=== PATIENT | female | born 1965 | race African-American/Black ===

== ENCOUNTER 2018-02-24 18:09 | Emergency (ER) | payer MEDICAID, OTHER ==
[~2018-02-24] VITALS: Ht 170.2 cm; Wt 82.0 kg
[2018-02-24] MEDS ORDERED: NALOXONE HCL 0.4 MG/ML 1ML VIAL IV ONE (18:30)
[2018-02-24 19:19] LABS: HEMATOCRIT. 40.5 % (36.0-48.0); HEMOGLOBIN. 13.8 g/dL (12.0-16.0); LYMPHOCYTES % 29.4 % (20.0-50.0); MEAN CORPUSCULAR HEMOGLOBIN 30.3 pg (28.0-32.0); MEAN CORPUSCULAR VOLUME 88.9 fL (81.0-99.0); MEAN PLATELET VOLUME 8.3 fl (7.4-10.4); MONOCYTES % 5.7 % (2.0-8.0); NEUTROPHILS % 60.9 % (40.0-76.0); PLATELET 315 x1000/uL (130-400); RED BLOOD CELL COUNT 4.55 mill/uL (4.2-5.4); RED CELL DISTRIBUTION WIDTH 15.4 % (11.6-14.6)
[2018-02-24 19:23] LABS: CHLORIDE 107 mEq/L (98-107)
[2018-02-24 19:28] LABS: ETHANOL BLOOD < 10 mg/dL
[2018-02-24 19:53] LABS: CLARITY URINE CLEAR (CLEAR); COLOR URINE YELLOW (YELLOW); KETONES URINE NEGATIVE (NEGATIVE); LEUKOCYTE ESTERASE URINE NEGATIVE (NEGATIVE); NITRITE URINE NEGATIVE (NEGATIVE); OCCULT BLOOD URINE NEGATIVE (NEGATIVE); PROTEIN URINE NEGATIVE (NEGATIVE); SPECIFIC GRAVITY URINE 1.028 (1.005-1.030); UROBILINOGEN URINE 0.2 E.U./dL (0.2-1.0)
[2018-02-24 20:04] LABS: *AMPHETAMINES SCREEN URINE NEGATIVE (NEGATIVE); *BARBITURATES SCREEN URINE NEGATIVE (NEGATIVE); *BENZODIAZEPINES SCREEN URINE NEGATIVE (NEGATIVE); *COCAINE SCREEN URINE PRESUMTIVE POSITIVE (NEGATIVE); METHADONE URINE SCREEN NEGATIVE (NEGATIVE); OPIATES URINE SCREEN PRESUMTIVE POSITIVE (NEGATIVE)
[2018-02-24 20:05] LABS: CANNABINOID URINE SCREEN PRESUMTIVE POSITIVE (NEGATIVE); PHENCYCLIDINE URINE SCREEN NEGATIVE (NEGATIVE)
[2018-02-24] MEDS ORDERED: NALOXONE HCL 0.4 MG/ML 1ML VIAL IV NR (20:30)
[2018-02-25 07:08] VITALS: BP 130/84
== END 2018-02-25 07:30 | disposition home or self-care (01) ==
LOC: ER 18:22
DX: F19.10 Other psychoactive substance abuse, uncomplicated (principal); R41.82 Altered mental status, unspecified; I10 Essential (primary) hypertension; J32.2 Chronic ethmoidal sinusitis
CPT/HCPCS: 36415; 70450; 71045; 80053; 80305; 80307; 80329; 81003; 81025; 82962; 85025; 96374; 96376; 99285; G0482; J2310; Z7610

== ENCOUNTER 2018-08-03 01:25 | Emergency (ER) | payer OTHER ==
[~2018-08-03] VITALS: Ht 162.6 cm; Wt 83.0 kg
[2018-08-03] MEDS ORDERED: IBUPROFEN 800MG TABLET PO ONE (06:30)
[2018-08-03] MEDS ORDERED: KETOROLAC 60MG/2ML VIAL IM ONE (06:45)
[2018-08-03] MEDS ORDERED: CYCLOBENZAPRINE 10MG TABLET PO ONE (06:45)
[2018-08-03 09:18] VITALS: BP 111/81
== END 2018-08-03 09:23 | disposition home or self-care (01) ==
LOC: ER 01:25
DX: M25.561 Pain in right knee (principal); M17.11 Unilateral primary osteoarthritis, right knee; I10 Essential (primary) hypertension; X58.XXXA Exposure to other specified factors, initial encounter; Y93.89 Activity, other specified; Y92.89 Other specified places as the place of occurrence of the external cause
CPT/HCPCS: 73562; 96372; 99283; J1885; L1830; 29505

== ENCOUNTER 2021-05-17 07:25 | Emergency (ER) | payer MEDICAID, OTHER ==
[~2021-05-17] VITALS: Ht 165.1 cm; Wt 70.0 kg
[2021-05-17 09:05] LABS: BASOPHILS % 0.3 % (0.0-2.0); EOSINOPHILS % 0.5 % (0.0-5.0); HEMATOCRIT. 48.8 % (36.0-48.0); HEMOGLOBIN. 16.1 g/dL (12.0-16.0); LYMPHOCYTES % 16.3 % (20.0-50.0); MEAN CORPUSCULAR HEMOGLOBIN 30.7 pg (28.0-32.0); MEAN PLATELET VOLUME 8.9 fl (7.4-10.4); MONOCYTES % 2.8 % (2.0-8.0); NEUTROPHILS % 80.1 % (40.0-76.0); PLATELET 279 x1000/uL (130-400); RED BLOOD CELL COUNT 5.25 mill/uL (4.2-5.4); RED CELL DISTRIBUTION WIDTH 14.2 % (11.6-14.6)
[2021-05-17 09:12] LABS: CHLORIDE 106 mEq/L (98-107)
[2021-05-17 09:17] LABS: ETHANOL BLOOD < 10 mg/dL
[2021-05-17] MEDS ORDERED: ONDANSETRON 4MG ODT PO ONE (10:30)
[2021-05-17 10:47] LABS: CLARITY URINE CLOUDY (CLEAR); COLOR URINE YELLOW (YELLOW); KETONES URINE NEGATIVE (NEGATIVE); LEUKOCYTE ESTERASE URINE 3+ (NEGATIVE); NITRITE URINE NEGATIVE (NEGATIVE); OCCULT BLOOD URINE 1+ (NEGATIVE); PH URINE 5.5 (4.5-8.0); PROTEIN URINE 2+ (NEGATIVE); SPECIFIC GRAVITY URINE 1.012 (1.005-1.030); UROBILINOGEN URINE 0.2 E.U./dL (0.2-1.0)
[2021-05-17 11:11] LABS: CANNABINOID URINE SCREEN NEGATIVE (NEGATIVE); OPIATES URINE SCREEN NEGATIVE (NEGATIVE); PHENCYCLIDINE URINE SCREEN NEGATIVE (NEGATIVE)
[2021-05-17 11:12] LABS: *AMPHETAMINES SCREEN URINE NEGATIVE (NEGATIVE); *BARBITURATES SCREEN URINE NEGATIVE (NEGATIVE); *BENZODIAZEPINES SCREEN URINE NEGATIVE (NEGATIVE); *COCAINE SCREEN URINE PRESUMTIVE POSITIVE (NEGATIVE); METHADONE URINE SCREEN NEGATIVE (NEGATIVE)
[2021-05-17] MEDS ORDERED: CEFTRIAXONE 1 G PREMIX 50 ML IV ONE (11:30)
[2021-05-17] MEDS ORDERED: CEPH500T MT (11:39)
[2021-05-17] MEDS ORDERED: NALO4SPR BOTHNSTRLS (11:44)
[2021-05-17 12:46] VITALS: BP 126/75
== END 2021-05-17 12:49 | disposition home or self-care (01) ==
LOC: ER 07:30
DX: T50.7X1A Poisoning by analeptics and opioid receptor antagonists, accidental (unintentional), initial encounter (principal); Y92.89 Other specified places as the place of occurrence of the external cause; N39.0 Urinary tract infection, site not specified; I10 Essential (primary) hypertension; F17.290 Nicotine dependence, other tobacco product, uncomplicated; F14.10 Cocaine abuse, uncomplicated; F12.10 Cannabis abuse, uncomplicated
CPT/HCPCS: 36415; 70450; 80053; 80305; 80320; 81003; 85025; 87077; 87086; 93005; 96365; 99285; J0696; Q0162; G0480

== ENCOUNTER 2021-10-17 19:49 | Emergency (ER) | payer MEDICAID ==
[~2021-10-17] VITALS: Ht 162.6 cm; Wt 61.0 kg
[~2021-10-17 19:49] MED LIST: CEPH500T MT; NALO4SPR BOTHNSTRLS
[2021-10-17] MEDS ORDERED: ACETAMINOPHEN WITH CODEINE 300/30MG TABLET PO ONE (20:30)
[2021-10-17] MEDS ORDERED: HYDRALAZINE 20MG/ML VIAL IV ONE (23:45)
[2021-10-18] MEDS ORDERED: OXYCODONE HCL/ACETAMINOPHEN 5/325MG TABLET PO ONE (01:30)
[2021-10-18 02:21] LABS: BASOPHILS % 1.2 % (0.0-2.0); EOSINOPHILS % 5.7 % (0.0-5.0); HEMATOCRIT. 42.4 % (36.0-48.0); HEMOGLOBIN. 14.5 g/dL (12.0-16.0); LYMPHOCYTES % 42.9 % (20.0-50.0); MEAN CORPUSCULAR HEMOGLOBIN 30.7 pg (28.0-32.0); MEAN CORPUSCULAR VOLUME 89.7 fL (81.0-99.0); MEAN PLATELET VOLUME 8.5 fl (7.4-10.4); MONOCYTES % 5.4 % (2.0-8.0); NEUTROPHILS % 44.8 % (40.0-76.0); PLATELET 297 x1000/uL (130-400); RED BLOOD CELL COUNT 4.73 mill/uL (4.2-5.4); RED CELL DISTRIBUTION WIDTH 13.6 % (11.6-14.6)
[2021-10-18 02:28] LABS: CHLORIDE 109 mEq/L (98-107)
[2021-10-18] MEDS ORDERED: MORPHINE SULFATE 2 MG/ML CPJ (NOT FOR IM USE) IV ONE (08:30)
[2021-10-18] MEDS ORDERED: MORPHINE SULFATE 4 MG/ML CPJ (NOT FOR IM USE) IV ONE (17:00)
[2021-10-18] MEDS ORDERED: AMOXICILLIN/POTASSIUM CLAVULANATE 875/125MG TAB PO ONE (20:15)
[2021-10-19] MEDS ORDERED: ACETAMINOPHEN 325MG TABLET PO ONE (05:45)
[2021-10-19] MEDS ORDERED: FLUORESCEIN SODIUM 1MG/STRIP LEFTEYE ONE (05:45)
[2021-10-19] MEDS ORDERED: TETRACAINE 0.5% OPHTH DROPS 4ML LEFTEYE ONE (05:45)
[2021-10-19] MEDS ORDERED: TOPUD PO (05:52)
[2021-10-19 06:00] VITALS: BP 141/81
[2021-10-19] MEDS ORDERED: OXYC-100 MT (06:18)
[2021-10-19] MEDS ORDERED: AMOX-424 PO (06:19)
== END 2021-10-19 06:45 | disposition home or self-care (01) ==
LOC: ER 19:55
DX: S02.32XA Fracture of orbital floor, left side, initial encounter for closed fracture (principal); S02.40DA Maxillary fracture, left side, initial encounter for closed fracture; S02.2XXA Fracture of nasal bones, initial encounter for closed fracture; M79.641 Pain in right hand; K92.0 Hematemesis; Z20.822 Contact with and (suspected) exposure to COVID-19; I10 Essential (primary) hypertension; F14.10 Cocaine abuse, uncomplicated; Y04.2XXA Assault by strike against or bumped into by another person, initial encounter; Y93.89 Activity, other specified; Y92.89 Other specified places as the place of occurrence of the external cause; F12.10 Cannabis abuse, uncomplicated; F11.10 Opioid abuse, uncomplicated
CPT/HCPCS: 70450; 70486; 71045; 73120; 80053; 83880; 84484; 85025; 87426; 96374; 96375; 96376; 99285; J0360; J2270

== ENCOUNTER 2021-10-28 18:18 | Emergency (ER) | payer MEDICAID ==
[~2021-10-28] VITALS: Ht 162.6 cm; Wt 70.0 kg
[~2021-10-28 18:18] MED LIST changes: +AMOX-424 PO; +OXYC-100 MT; +TOPUD PO
[2021-10-28] MEDS ORDERED: HYDROCODONE/ACETAMINOPHEN 5/325MG TABLET PO ONE (19:30)
[2021-10-28] MEDS ORDERED: HYDR-4001 MT (20:17)
[2021-10-28 20:45] VITALS: BP 156/89
== END 2021-10-28 20:47 | disposition home or self-care (01) ==
LOC: ER 18:18
DX: S02.40DA Maxillary fracture, left side, initial encounter for closed fracture (principal); S02.85XA Fracture of orbit, unspecified, initial encounter for closed fracture; R68.84 Jaw pain; H11.31 Conjunctival hemorrhage, right eye; Z76.0 Encounter for issue of repeat prescription; I10 Essential (primary) hypertension; Y04.2XXA Assault by strike against or bumped into by another person, initial encounter; Y93.89 Activity, other specified; Y92.89 Other specified places as the place of occurrence of the external cause; F14.90 Cocaine use, unspecified, uncomplicated; F12.90 Cannabis use, unspecified, uncomplicated; F11.90 Opioid use, unspecified, uncomplicated
CPT/HCPCS: 99283